=== PATIENT | male | born 1940 | race Caucasian/White ===

== ENCOUNTER 2017-11-16 09:17 | Emergency (ER) | payer MEDICARE, OTHER ==
[2017-11-16 09:38] VITALS: BP 135/80
[2017-11-16] MEDS ORDERED: Aspirin 81 mg CHEW TAB* 81 MG TAB.CHEW PO ONE (10:26)
--- NOTE | 2017-11-16 11:03 | UC ---
Brigido Meadows Gabriel, scribed for Alena Yee DO on 11/16/17 at 1009 . Neck Pain HPI - HPI Summary HPI Summary: This patient is a 77 year old M [place] [facility] [place] a chief complaint of right sided neck pain that began 11-12-17 and that has gotten worse last night. Pt saw his PCP 11-13-17 and 11-14-17 and was given flexeril for this pain which mildly alleviates the pain. The patient rates the pain 9/10 in severity. Patient reports jaw clicking and a dull ALCARAZ in the back of his head. Patient denies fever, chills, nausea, ABD pain, SOB, CP, diaphoresis, blurred vision, unsteady gait, confusion, slurred speech, and weakness. Pt has a scaly rash on the posterior neck that his is seeing his PCP for. - History of Current Complaint Chief Complaint: UCHeadache Stated Complaint: HEADACHE Time Seen by Provider: 11/16/17 09:56 Hx Obtained From: Patient Onset/Duration Of Injury/Symptoms: Days Timing: Constant Onset/Duration: Lasting Days, Still Present Severity: Severe Pain Intensity: 9 Pain Scale Used: 0-10 Numeric Associated Signs & Symptoms: Positive: Negative - fever, chills, nausea, ABD pain, SOB, CP, diaphoresis,, Headache - Allergies/Home Medications Allergies/Adverse Reactions: Allergies Allergy/AdvReac Type Severity Reaction Status Date / Time No Known Allergies Allergy Verified 11/16/17 09:28 Home Medications: Home Medications Acetaminophen [Tylenol] 3 tab PO DAILY 11/16/17 [History Confirmed 11/16/17] Aspirin TAB* [Aspirin 325 MG TAB*] 0.5 tab PO DAILY 11/16/17 [History Confirmed 11/16/17] Cyclobenzaprine TAB* [Flexeril 10 MG TAB*] 10 mg PO TID PRN 11/16/17 [History Confirmed 11/16/17] Finasteride TAB* [Proscar TAB*] 1 tab PO DAILY 11/16/17 [History Confirmed 11/16] Glucosam/Chondr/Collagn/Hyalur [Glucosamine & Chondroitin Cap] 1 tab PO DAILY [History Confirmed 11/16/17] Multivitamin [Multivitamins] 1 tab PO DAILY 11/16/17 [History Confirmed 11/16/17 ] Simvastatin 1 tab PO DAILY 11/16/17 [History Confirmed 11/16/17] Sitagliptin Phosphate [Januvia] 1 tab PO DAILY 11/16/17 [History Confirmed 11/16] glipiZIDE [Glipizide] 10 mg PO DAILY 11/16/17 [History Confirmed 11/16/17] PMH/Surg Hx/FS Hx/Imm Hx Endocrine History: Diabetes Cardiovascular History: Hypertension GI/ History: Other Other GI/ History: BPH - Surgical History Surgical History: None - Family History Known Family History: Positive: Cardiac Disease - father, Hypertension - Social History Lives: With Family Alcohol Use: Daily Alcohol Amount: 1 cocktail before diner 6 times a week Substance Use Type: None Smoking Status (MU): Never Smoked Tobacco Review Of Systems ENT: Positive: Other - jaw clicking Musculoskeletal: Positive: Other: - neck clicking Neurological: Positive: Headache All Other Systems Reviewed And Are Negative: Yes Physical Exam - Summary Physical Exam Summary: Appearance: Well-Appearing, No Pain Distress, Well-Nourished Eyes: conjunctiva clear, no discharge ENT: Hearing grossly normal, no muffled/hoarse voice. Hearing grossly normal, normal voice. Neck: Normal, Supple Respiratory/Lung Sounds: Lungs clear, Normal breath sounds, No respiratory distress, No accessory muscle use Cardiovascular: RRR, No murmur Musculoskeletal: TTP over SCM and base of skull on the right Neurological: A&Ox3, CN II-XII INTACT, SENSORY MOTOR INTACT, REFLEXES INTACT, NO CEREBELLAR SIGNS, FACIAL SYMMETRY, NEGATIVE ROMBERG, NORMAL GAIT Psychiatric: Normal, age appropriate behavior Skin: Normal, Warm, Dry, Normal color Triage Information Reviewed: Yes Vital Signs: Initial Vital Signs Temp 97.2 F 11/16/17 09:33 Pulse 52 11/16/17 09:33 Resp 18 11/16/17 09:33 BP 135/80 11/16/17 09:33 Pulse Ox 100 11/16/17 09:33 Vital Signs Reviewed: Yes Diagnostics - EKG Cardiac Rate: Bradycardia Cardiac Rhythm: Sinus: New - at 48 BPM, Other Rhythm: New - no ST elevations Neck Pain Course/Dx - Course Course Of Treatment: [facility] the patient was given ASA. Patient was encouraged to take an ambulance to the ED but he declined, he was informed of the risks of taking a personal vehicle. The patient understands and will sign out AMA. Medications reviewed. Allergies reviewed. - Differential Dx/Diagnosis Provider Diagnoses: atypical CP, ALCARAZ, TMJ dysfunction Discharge - Sign-Out/Discharge Documenting (check all that apply): Discharge/Admit/Transfer - Discharge Plan Condition: Fair Disposition: AGAINST MEDICAL ADVICE Referrals: Ramesh Noel MD [Primary Care Provider] - The documentation as recorded by the Brigido napoles Gabriel accurately reflects the service I personally performed and the decisions made by , Alena Yee DO.
== END 2017-11-16 10:32 | disposition left against medical advice (07) ==
LOC: UCEAST 09:17
DX: R07.89 Other chest pain (principal); R51 Headache; M26.69 Other specified disorders of temporomandibular joint; R00.1 Bradycardia, unspecified; E11.9 Type 2 diabetes mellitus without complications; Z79.84 Long term (current) use of oral hypoglycemic drugs; I10 Essential (primary) hypertension; N40.0 Benign prostatic hyperplasia without lower urinary tract symptoms
CPT/HCPCS: 93005; 99212; A9270-GY; G0463

== ENCOUNTER 2017-11-16 10:51 | Emergency (ER) | payer MEDICARE, OTHER ==
[2017-11-16] MEDS ORDERED: NS 0.9% 1000 ML* 1,000 ML IV ONE (12:24)
[2017-11-16 13:03] LABS: ABS Basophils 0.1 10^3/ul (0-0.2); ABS Eosinophils 0.2 10^3/ul (0-0.6); ABS Monocytes 0.8 10^3/ul (0-0.8); ABS Neutrophils 4.8 10^3/ul (1.5-7.7); ABS Nucleated RBC 0 10^3/ul; Eosinophil % 2.4 % (0-6); Hematocrit 43 % (42-52); Lymphocyte % 14.3 % (25-47); Mean Corpuscular HGB Conc 35 g/dl (31-36); Mean Corpuscular Hemoglobin 32 pg (27-31); Mean Corpuscular Volume 92 fL (80-94); Mean Platelet Volume 8.9 um3 (7.4-10.4); Nucleated Red Blood Cells % 0; Platelet Count 146 10^3/ul (150-450); Red Blood Count 4.65 10^6/ul (4.0-5.4); Red Cell Distribution Width 13 % (10.5-15); White Blood Count 6.8 10^3/ul (3.5-10.8)
[2017-11-16 13:11] LABS: INR 0.93 (0.77-1.02)
[2017-11-16 13:22] LABS: EGFR Non-African American 46.8 (>60)
[2017-11-16] MEDS ORDERED: Iodixanol* (CONTRAST) 320 MG/ML 100 ML SDV IV ONE (13:29)
--- NOTE | 2017-11-16 14:18 | RAD ---
INDICATION: Right neck pain. Headaches. COMPARISON: CT brain May 12, 2011 TECHNIQUE: Noncontrast axial source images were acquired from the skull base to the vertex. FINDINGS: Ventricles/sulci: The ventricles and cisterns are normal in size and configuration for age. Brain parenchyma: There is no focal parenchymal finding, evidence of intracranial mass, or intracranial mass effect. Intracranial hemorrhage:None. Extra-axial spaces: There are no abnormal extra axial fluid collections or evidence of extra-axial mass. Calvarium: There is no calvarial fracture or other calvarial abnormality. Scalp: There is no evidence of scalp or extracalvarial soft tissue abnormality. Paranasal sinuses/mastoid: The paranasal sinuses and mastoid air cells are clear. Other: None. IMPRESSION: No acute intracranial findings
--- NOTE | 2017-11-16 14:23 | RAD ---
Indication: Right neck pain. Contrast: Administered 80.0 ml of VISAPAQUE 320 mg/ml CTA of the neck and head was performed after IV contrast administration. Coronal and sagittal 3-D reconstructive images were obtained. The aortic arch is unremarkable. Common origin of left common carotid artery and brachiocephalic artery is noted. The common carotid arteries are unremarkable. The internal carotid arteries are unremarkable bilaterally. Normal caliber is noted. No evidence of carotid artery dissection is noted. The vertebral arteries appear fairly symmetric with no significant stenosis or change in caliber. The intracranial vessels demonstrates basilar artery and posterior cerebral arteries to be unremarkable. The anterior and middle cerebral arteries demonstrates no aneurysmal dilatation or branch occlusion. Persistent posterior communicating arteries are noted bilaterally. No evidence of branch occlusion, aneurysmal dilatation or dissection is noted. Soft tissues of the neck demonstrate enlarged heterogeneous thyroid gland bilaterally consistent with multinodular goiter. Submandibular glands and parotid glands are unremarkable. Mastoid air cells are well aerated. Lung apices are otherwise unremarkable. IMPRESSION: NO EVIDENCE OF CAROTID ARTERY DISSECTION IS NOTED. COMMON ORIGIN OF THE LEFT COMMON CAROTID ARTERY BRACHIOCEPHALIC ARTERY. INTRACRANIAL CIRCULATION IS GROSSLY UNREMARKABLE. NO BRANCH OCCLUSION OR ANEURYSMAL DILATATION IS NOTED. THERE IS BILATERAL MULTINODULAR GOITER NOTED.
--- NOTE | 2017-11-16 14:30 | RAD ---
INDICATION: Right neck pain. COMPARISON: Comparison is made with a prior CT of the cervical spine from a May 12, 2011. TECHNIQUE: Contiguous axial sections were obtained from the skull base through the T1 vertebra. Images were reconstructed in the sagittal and coronal planes. FINDINGS: There is straightening of the cervical spine with loss of the normal cervical lordosis. No prevertebral soft tissue swelling or acute fracture is seen. There is mild loss of height in the C5 vertebral body which is unchanged from the prior study. At the C2-C3 level there is disc space narrowing and posterior uncinate process spurring. There are hypertrophic changes within the left facet joint. There is mild spinal canal narrowing and moderate bilateral neural foraminal narrowing. At the C3-C4 level there is mild posterior uncinate process spurring. There is mild spinal canal narrowing and mild bilateral neural foraminal narrowing. At the C4-C5 level there is mild posterior uncinate process spurring. There is mild spinal canal narrowing and moderate bilateral neural foraminal narrowing. At the C5-C6 level there is mild posterior uncinate process spurring. No spinal canal narrowing is present. There is moderate to severe bilateral neural foraminal narrowing. At C6-C7 level there is mild uncinate process spurring. No significant spinal canal narrowing is present. There is mild to moderate bilateral neural foraminal narrowing. There are multiple thyroid nodules and scattered areas of calcification. The gland has increased in size from the prior study. This causes narrowing of the trachea which appears similar to the prior study. The lung apices appear clear. IMPRESSION: 1. STRAIGHTENING OF THE CERVICAL SPINE, NO EVIDENCE FOR FRACTURE OR SUBLUXATION. 2. MODERATE CERVICAL SPONDYLOSIS. 3. ENLARGED THYROID GLAND WITH MULTIPLE NODULES CAUSING NARROWING OF THE TRACHEA. RECOMMEND A FOLLOW-UP OUTPATIENT THYROID ULTRASOUND FOR FURTHER EVALUATION.
--- NOTE | 2017-11-16 15:08 | RAD ---
INDICATION: Right neck pain COMPARISON: None TECHNIQUE: An AP portable view obtained at 1448 hours is submitted. FINDINGS: Bones/Soft Tissues: There are no acute bony findings. Cardiomediastinal: The cardiomediastinal silhouette is normal. Lungs: There are no infiltrates. Pleura: There are no pleural effusions. Other: None IMPRESSION: NO ACTIVE DISEASE.
[2017-11-16] MEDS ORDERED: Ibuprofen TAB* 600 MG PO ONE (15:42)
--- NOTE | 2017-11-16 15:49 | ED ---
Megan Meadows Nilda, scribed for Riley Dozier MD on 11/16/17 at 1230 . Headache - HPI Summary HPI Summary: This patient is a 77 year old M presenting from to [facility] accompanied by with a chief complaint of intermittent right jaw pain that radiates to back of head and occasionally right neck for the past 4 days. Pt states he was seen by PCP 3 days ago for symptoms and was prescribed muscle relaxant with no relief. Last night at 1999, pt experience constant severe pain that prevented pt from sleeping. The patient rates the pain 9/10 in severity at its worse. Symptoms aggravated by opening mouth and twisting head and alleviated by heat pad. Patient reports click in jaw, right ear ache, and dental pain, but denies CP and SOB. states pt developed acute erythema behind right ear. Dr. Noel (PCP) informed pt had enlarged thyroid a week ago, per pt. NKDA. - History Of Current Complaint Chief Complaint: EDHeadache Stated Complaint: LOW PULSE-SENT FROM Time Seen by Provider: 11/16/17 12:07 Hx Obtained From: Patient, Family/Inspector Chief Onset/Duration: Sudden Onset, Started days ago, Still Present Currently Pain Is: Current Pain Scale(0-10)= - 9 Timing: Intermittent, Lasting: Location of Headache: Other: - back of head Radiates to: right jaw pain, right neck pain Aggravating Factor: Other - opening mouth and twisting head Allevating Factors: Other (Noted In Comments) - heat pad Associated Signs And Symptoms: Other (Noted In Comments) - right jaw pain, radiates right neck, click in jaw, right ear ache, dental pain, erythematous area behind right ear - Allergies/Home Medications Allergies/Adverse Reactions: Allergies Allergy/AdvReac Type Severity Reaction Status Date / Time No Known Allergies Allergy Verified 11/16/17 11:00 Home Medications: Home Medications Acetaminophen TAB* [Tylenol TAB*] 975 mg PO DAILY 11/16/17 [History Confirmed ] Finasteride TAB* [Proscar TAB*] 5 mg PO DAILY 11/16/17 [History Confirmed ] Multivitamins/Minerals TAB* [Theragran/minerals TAB*] 1 tab PO DAILY 11/16/17 [ History Confirmed 11/16/17] Simvastatin TAB(NF) [Zocor(NF)] 20 mg PO DAILY 11/16/17 [History Confirmed 11/16] SitaGLIPtin (NF) [Januvia (NF)] 100 mg PO DAILY 11/16/17 [History Confirmed 01/27] glipiZIDE TAB* [Glucotrol TAB*] 10 mg PO DAILY 11/16/17 [History Confirmed 11/16] PMH/Surg Hx/FS Hx/Imm Hx Endocrine/Hematology History: Reports: Hx Diabetes Opthamlomology History: Denies: Hx Legally Blind EENT History: Reports: Hx Hearing Aid Infectious Disease History: No Infectious Disease History: Denies: Traveled Outside the [place] in Last 30 Days - Family History Known Family History: Positive: Cardiac Disease - [place] father 65 y/o - Social History Lives: With Family Alcohol Use: Weekly Alcohol Amount: 5x weekly Substance Use Type: Reports: None Smoking Status (MU): Never Smoked Tobacco Review of Systems Positive: Dental Pain, Ear Ache - right, Other - jaw pain (right), clicking jaw Negative: Chest Pain Negative: Shortness Of Breath Positive: Other - right neck pain Positive: Other - erythematous area behind right ear Positive: Headache All Other Systems Reviewed And Are Negative: Yes Physical Exam - Summary Physical Exam Summary: General: well-appearing, no pain distress Skin: warm, color reflects adequate perfusion, dry; Erythema over right mastoid some satellite erythematous regions nearby. No erythema left side head. Head:Tender to palpation over right mastoid, right TMJ, and right sternal colloidal mastoid muscle. Eyes: EOMI, LENA ENT: TM nml right side. Teeth in molars (back) have caps. No obvious dental infection. Neck: supple, Tender to palpation over right mastoid, right TMJ, and right sternal colloidal mastoid muscle. Respiratory: CTA, breath sounds present Cardiovascular: RRR Abdomen: soft, nontender Bowel: present Musculoskeletal: normal, strength/ROM intact Neurological: normal, sensory/motor intact, A&O x3 Psychological: affect/mood appropriate Triage Information Reviewed: Yes Vital Signs On Initial Exam: Initial Vitals Temp Pulse Resp BP Pulse Ox 97.8 F 56 16 95/68 99 11/16/17 10:55 11/16/17 10:55 11/16/17 10:55 11/16/17 10:55 11/16/17 10:55 Vital Signs Reviewed: Yes - Neihart Coma Scale Best Eye Response: 4 - Spontaneous Best Motor Response: 6 - Obeys Commands Best Verbal Response: 5 - Oriented Coma Scale Total: 15 Diagnostics - Vital Signs Vital Signs Temp Pulse Resp BP Pulse Ox 11/16/17 11:45 50 13 136/73 99 11/16/17 11:15 47 16 144/78 99 11/16/17 11:13 12 11/16/17 11:01 138/80 11/16/17 10:55 97.8 F 56 16 95/68 99 - Laboratory Lab Results: Lab Results 11/16/17 11/16/17 11/16/17 Range/Units 12:44 12:44 12:44 WBC 6.8 (3.5-10.8) 10^3/ul RBC 4.65 (4.0-5.4) 10^6/ul Hgb 15.0 (14.0-18.0) g/dl Hct 43 (42-52) % MCV 92 (80-94) fL MCH 32 H (27-31) pg MCHC 35 (31-36) g/dl RDW 13 (10.5-15) % Plt Count 146 L (150-450) 10^3/ul MPV 8.9 (7.4-10.4) um3 Neut % (Auto) 70.6 (38-83) % Lymph % (Auto) 14.3 L (25-47) % [place] % (Auto) 12.0 H (0-7) % Eos % (Auto) 2.4 (0-6) % Baso % (Auto) 0.7 (0-2) % Absolute Neuts (auto) 4.8 (1.5-7.7) 10^3/ul Absolute Lymphs (auto) 1.0 (1.0-4.8) 10^3/ul Absolute Monos (auto) 0.8 (0-0.8) 10^3/ul Absolute Eos (auto) 0.2 (0-0.6) 10^3/ul Absolute Basos (auto) 0.1 (0-0.2) 10^3/ul Absolute Nucleated RBC 0 10^3/ul Nucleated RBC % 0 INR (Anticoag Therapy) 0.93 (0.77-1.02) APTT 29.3 (26.0-36.3) seconds Sodium 139 (139-145) mmol/L Potassium 4.2 (3.5-5.0) mmol/L Chloride 106 (101-111) mmol/L Carbon Dioxide 25 (22-32) mmol/L Anion Gap 8 (2-11) mmol/L BUN 21 (6-24) mg/dL Creatinine 1.46 H (0.67-1.17) mg/dL Est GFR ( Amer) 60.2 (>60) Est GFR (Non-Af Amer) 46.8 (>60) BUN/Creatinine Ratio 14.4 (8-20) Glucose 174 H (70-100) mg/dL Lactic Acid (0.5-2.0) mmol/L Calcium 10.0 (8.6-10.3) mg/dL Total Bilirubin 0.70 (0.2-1.0) mg/dL AST 16 (13-39) U/L ALT 23 (7-52) U/L Alkaline Phosphatase 57 (34-104) U/L Total Creatine Kinase 74 (10-223) U/L CK-MB (CK-2) 2.9 (0.6-6.3) ng/mL Troponin I 0.00 (<0.04) ng/mL C-Reactive Protein 2.91 (< 5.00) mg/L Total Protein 6.9 (6.4-8.9) g/dL Albumin 4.3 (3.2-5.2) g/dL Globulin 2.6 (2-4) g/dL Albumin/Globulin Ratio 1.7 (1-3) Lipase 17 (11.0-82.0) U/L TSH 0.29 L (0.34-5.60) mcIU/mL Free T4 0.88 (0.61-1.12) ng/dL Total T3 Pending Thyroid Peroxidase Ab 18.07 H (<9) IU/mL 11/16/17 Range/Units 12:44 WBC (3.5-10.8) 10^3/ul RBC (4.0-5.4) 10^6/ul Hgb (14.0-18.0) g/dl Hct (42-52) % MCV (80-94) fL MCH (27-31) pg MCHC (31-36) g/dl RDW (10.5-15) % Plt Count (150-450) 10^3/ul MPV (7.4-10.4) um3 Neut % (Auto) (38-83) % Lymph % (Auto) (25-47) % [place] % (Auto) (0-7) % Eos % (Auto) (0-6) % Baso % (Auto) (0-2) % Absolute Neuts (auto) (1.5-7.7) 10^3/ul Absolute Lymphs (auto) (1.0-4.8) 10^3/ul Absolute Monos (auto) (0-0.8) 10^3/ul Absolute Eos (auto) (0-0.6) 10^3/ul Absolute Basos (auto) (0-0.2) 10^3/ul Absolute Nucleated RBC 10^3/ul Nucleated RBC % INR (Anticoag Therapy) (0.77-1.02) APTT (26.0-36.3) seconds Sodium (139-145) mmol/L Potassium (3.5-5.0) mmol/L Chloride (101-111) mmol/L Carbon Dioxide (22-32) mmol/L Anion Gap (2-11) mmol/L BUN (6-24) mg/dL Creatinine (0.67-1.17) mg/dL Est GFR ( Amer) (>60) Est GFR (Non-Af Amer) (>60) BUN/Creatinine Ratio (8-20) Glucose (70-100) mg/dL Lactic Acid 1.0 (0.5-2.0) mmol/L Calcium (8.6-10.3) mg/dL Total Bilirubin (0.2-1.0) mg/dL AST (13-39) U/L ALT (7-52) U/L Alkaline Phosphatase (34-104) U/L Total Creatine Kinase (10-223) U/L CK-MB (CK-2) (0.6-6.3) ng/mL Troponin I (<0.04) ng/mL C-Reactive Protein (< 5.00) mg/L Total Protein (6.4-8.9) g/dL Albumin (3.2-5.2) g/dL Globulin (2-4) g/dL Albumin/Globulin Ratio (1-3) Lipase (11.0-82.0) U/L TSH (0.34-5.60) mcIU/mL Free T4 (0.61-1.12) ng/dL Total T3 Thyroid Peroxidase Ab (<9) IU/mL Result Diagrams: 11/16/17 12:44 11/16/17 12:44 Lab Statement: Any lab studies that have been ordered have been reviewed, and results considered in the medical decision making process. - Radiology CXR Radiology Interpretation Completed By: Radiologist - CXR reveals no active disease. Dr. Dozier has reviewed this report. - CT CTA Head/Neck CT Interpretation Completed By: Radiologist - CTA Head/Neck reveals : NO EVIDENCE OF CAROTID ARTERY DISSECTION IS NOTED. COMMON ORIGIN OF THE LEFT COMMON CAROTID ARTERY BRACHIOCEPHALIC ARTERY. INTRACRANIAL CIRCULATION IS GROSSLY UNREMARKABLE. NO BRANCH OCCLUSION OR ANEURYSMAL DILATATION IS NOTED. THERE IS BILATERAL MULTINODULAR GOITER NOTED. Dr. Dozier has reviewed this report. Brain CT Interpretation Completed By: Radiologist - CT Brain reveals no acute intracranial findings. Dr. Dozier has reviewed this report. C-Spine CT Interpretation Completed By: Radiologist - CT C-spine reveals 1. STRAIGHTENING OF THE CERVICAL SPINE, NO EVIDENCE FOR FRACTURE OR SUBLUXATION. 2. MODERATE CERVICAL SPONDYLOSIS. 3. ENLARGED THYROID GLAND WITH MULTIPLE NODULES CAUSING NARROWING OF THE TRACHEA. RECOMMEND A FOLLOW-UP OUTPATIENT THYROID ULTRASOUND FOR FURTHER EVALUATION. Dr. Dozier has reviewed this report. - EKG 1057 Cardiac Rate: Bradycardia - 44 bpm EKG Rhythm: Sinus Tachycardia ST Segment: Normal Ectopy: None Re-Evaluation - Re-Evaluation First Eval Re-Evaluation Time: 15:08 Comment: Reviewed imaging and lab results as well as treatment and D/C plan. Headache Course/Dx - Course Course Of Treatment: Allergies noted. Medications reviewed. DISCUSSED RESULTS WITH THE PATIENT AND HIS . THERE IS A RASH ON THE RIGHT SIDE OF THE FACE WHICH COULD BE SHINGLES. THE ENLARGED THYROID COULD ALSO BE CAUSING THE PAIN. HIS PMD IS EVALUATING HIS THYROID NOW. TORTICOLLIS IS ALSO ON THE DDX. F/U PMD ; RETURN IF WORSE. - Diagnoses Provider Diagnoses: Neck pain on right side, Shingles, Thyroid nodule, Hyperthyroidism Discharge - Sign-Out/Discharge Documenting (check all that apply): Discharge/Admit/Transfer - Discharge Plan Condition: Stable Disposition: HOME Prescriptions: HYDROcodone/ACETAMIN 5-325 MG* [Andreas 5-325 TAB*] 1 tab PO Q6H PRN #20 tab MDD 4 PRN Reason: Pain Valacyclovir HCl [Valacyclovir] 1,000 mg PO TID #21 tablet Patient Education Materials: Shingles (ED), Hyperthyroidism (ED), Thyroid Nodules (ED), Neck Pain (ED) Referrals: Ramesh Noel MD [Primary Care Provider] - Additional Instructions: FOLLOW UP WITH YOUR DOCTOR. RETURN TO THE EMERGENCY DEPARTMENT FOR ANY WORSENING OF YOUR CONDITION OR QUESTIONS OR CONCERNS. - Billing Disposition and Condition Condition: STABLE Disposition: HOME The documentation as recorded by the Megan napoles Nilda accurately reflects the service I personally performed and the decisions made by me, Riley Dozier MD.
[2017-11-16] MEDS ORDERED: Acetaminophen TAB* 325 MG PO ONE (15:52)
[2017-11-16 16:07] VITALS: BP 153/74
== END 2017-11-16 16:06 | disposition home or self-care (01) ==
LOC: ED 10:51
DX: M54.2 Cervicalgia (principal); B02.9 Zoster without complications; E04.1 Nontoxic single thyroid nodule; E05.90 Thyrotoxicosis, unspecified without thyrotoxic crisis or storm; R68.84 Jaw pain; K08.89 Other specified disorders of teeth and supporting structures; H92.01 Otalgia, right ear; R07.89 Other chest pain; R51 Headache; M26.69 Other specified disorders of temporomandibular joint; R00.1 Bradycardia, unspecified; E11.9 Type 2 diabetes mellitus without complications; Z79.84 Long term (current) use of oral hypoglycemic drugs; I10 Essential (primary) hypertension; N40.0 Benign prostatic hyperplasia without lower urinary tract symptoms
CPT/HCPCS: 36415; 70450; 70496; 70498; 71045; 72125; 80053; 82550; 82553; 83605; 83690; 84439; 84443; 84479; 84484; 85025; 85610; 85730; 86140; 86376; 86618; 93005; 96360; 99212; 99283; A9270-GY; G0463; Q9967